=== PATIENT | female | born 1945 | race Caucasian/White ===

== ENCOUNTER 2022-05-15 12:25 | Inpatient (IN) | payer MEDICARE ==
[~2022-05-15] VITALS: Ht 167.6 cm; Wt 62.1 kg
[2022-05-15] MEDS ORDERED: VANCOMYCIN IV 1,000 MG in IV DEXTROSE 5% 250 ML IV ONE (12:45)
[2022-05-15] MEDS ORDERED: IV NORMAL SALINE 100 ML BAG IV ONE (12:45)
[2022-05-15] MEDS ORDERED: PIPERACILLIN SODIUM/TAZOBACTAM 3.375 G in IV DEXTROSE 5% 50 ML IV ONE (12:45)
[2022-05-15] MEDS ORDERED: VANCOMYCIN IV 200 ML ONE ×2 (12:48→22:26)
[2022-05-15] MEDS ORDERED: PIPERACILLIN/TAZOBACTAM/D5W 50 ML IV ONE (12:49)
[2022-05-15 12:53] LABS: HEMATOCRIT 32.5 % (31.2-41.9); MEAN CORPUSCULAR HEMOGLOBIN 29.9 uug (24.7-32.8); MEAN CORPUSCULAR VOLUME 89.8 fL (75.5-95.3); PLATELET COUNT (AUTO) 242 K/uL (179-408)
[2022-05-15 13:46] LABS: ALANINE AMINOTRANSFERASE 34 U/L (14-59); ALKALINE PHOSPHATASE 102 U/L (50-136); ASPARTATE AMINOTRANSFERASE 21 U/L (15-37); BILIRUBIN,DIRECT 0.2 mg/dL (0.0-0.2); BILIRUBIN,TOTAL 0.6 mg/dL (0.2-1.0); CARBON DIOXIDE 21 mmol/L (21-32); CHLORIDE 103 mmol/L (98-107); CREATININE 0.9 mg/dL (0.6-1.3); GLUCOSE 185 mg/dL (74-106); POTASSIUM 3.8 mmol/L (3.5-5.1); TOTAL PROTEIN, SERUM 6.7 g/dL (6.4-8.2); UREA NITROGEN, BLOOD 28 mg/dL (7-18)
[2022-05-15] MEDS ORDERED: METOCARBAMOL (13:53)
[2022-05-15] MEDS ORDERED: DECADRON (13:53)
[2022-05-15] MEDS ORDERED: TYLENOL (13:53)
[2022-05-15] MEDS ORDERED: ZOFRAN (13:53)
[2022-05-15] MEDS ORDERED: PEPCID (13:53)
[2022-05-15] MEDS ORDERED: DOXYCYCLINE (13:53)
[2022-05-15] MEDS ORDERED: HYDROCODONE (13:53)
[2022-05-15] MEDS ORDERED: AMOXICILLIN (13:53)
[2022-05-15] MEDS ORDERED: GABAPENTIN (13:53)
--- NOTE | 2022-05-15 15:17 | NUR ---
Pt refused to have IV contrast, Dr Michel made aware.
[2022-05-15] MEDS ORDERED: ROBAXIN PO (16:58)
[2022-05-15] MEDS ORDERED: GABA600T12 PO (16:58)
[2022-05-15] MEDS ORDERED: LIDOCAINE PATCH TP (16:58)
[2022-05-15] MEDS ORDERED: HYDR-3972 PO (16:58)
[2022-05-15] MEDS ORDERED: APIX5TAB PO (16:58)
[2022-05-15] MEDS ORDERED: AMOX875T2 PO (16:58)
[2022-05-15] MEDS ORDERED: DEXA4TAB PO (16:58)
[2022-05-15] MEDS ORDERED: DOXY100C5 PO (16:58)
[2022-05-15] MEDS ORDERED: FENT1PAT5 TP (16:58)
[2022-05-15] MEDS ORDERED: FAMO10TA41 PO (16:58)
[2022-05-15] MEDS ORDERED: ONDA4TAB5 PO (16:58)
--- NOTE | 2022-05-15 18:32 | NUR ---
Transfer pt to Tele bed 306.
[2022-05-15 18:36] VITALS: BP 127/58
--- NOTE | 2022-05-15 18:40 | NUR ---
Received from ER. [facility]. large formed stool. diaper & linen changed. Moderate amt. of greenish yellow drainage from GT site. Site cleansed & dry dressing applied.
[2022-05-15 18:42] LABS: *BLOOD, URINE 3+ (NEGATIVE); *CLARITY,URINE CLEAR (CLEAR); *COLOR,URINE YELLOW (YELLOW); *KETONES,URINE NEGATIVE (NEGATIVE); LEUKOCYTE ESTERASE ,URINE NEGATIVE (NEGATIVE); NITRITE, URINE NEGATIVE (NEGATIVE); PH,URINE 5.5 (5.0-8.0); UGLUCOSE NEGATIVE (NEGATIVE)
--- NOTE | 2022-05-15 18:50 | NUR ---
and daughter at bedside.
[2022-05-15 18:51] LABS: *BILIRUBIN,URIN 1+ (NEGATIVE)
--- NOTE | 2022-05-15 19:30 | NUR ---
Received Pt from Day shift. Pt is Alert but is disoriented to full situation at hand. SR on tele. Pt has G-tube, but currently does not have any apparent leakage. Hep lock IV site on the right AC patent. Port-A-Cath on right chest. Safety measures implemented. Will continue to monitor.
[2022-05-15 19:31] LABS: BACTERIA,URINE MANY /HPF (NONE SEEN); WBC,URINE NONE SEEN /HPF (0-3)
[2022-05-15 19:32] LABS: SQUAMOUS EPITHELIAL CELL,UR MODERATE /HPF (NONE SEEN)
[2022-05-15 19:33] LABS: URINE AMORPHOUS URATE MANY /HPF
[2022-05-15 20:00] VITALS: BP 102/49
[2022-05-15] MEDS ORDERED: MAGNESIUM HYDROXIDE 30 ML LIQUID UDC PO PRN (20:30)
[2022-05-15] MEDS ORDERED: GUAIFENESIN/CODEINE 5 ML LIQUID UDC PO PRN (20:30)
[2022-05-15] MEDS ORDERED: ACETAMINOPHEN 325 MG TABLET PO PRN (20:30)
[2022-05-15] MEDS ORDERED: HYDROCODONE/APAP 5-325MG TABLET PO PRN (20:30)
[2022-05-15] MEDS ORDERED: TEMAZEPAM 7.5 MG CAPSULE PO PRN (20:30)
[2022-05-15] MEDS ORDERED: APIXABAN 5 MG TABLET PO SCH (21:00)
[2022-05-15] MEDS ORDERED: GABAPENTIN 300 MG CAPSULE PO SCH (21:00)
[2022-05-15] MEDS ORDERED: HYDROCODONE/APAP 5-325MG TABLET GT PRN (22:30)
[2022-05-15] MEDS ORDERED: MEROPENEM 1GM/NS 100ML IVPB **ER PYXIS ONLY IV ONE ×2 (22:34)
[2022-05-15] MEDS: MEROPENEM 1 G in IV NORMAL SALINE 100 ML IV SCH (22:58)
--- NOTE | 2022-05-15 23:12 | NUR ---
Just found Pt's original antibiotics of meropenem for 2100 and vancomycin for 0000 in med room. Currently giving antibiotics as ordered. Safety measures implemented. Will continue to monitor.
[2022-05-15] MEDS: VANCOMYCIN IV 750 MG in IV DEXTROSE 5% 250 ML IV SCH (23:46)
[2022-05-16] VITALS: BP 93/46
[2022-05-16] MEDS: IV D5/ 0.9% NACL 1,000 ML IV PRN (00:05)
[2022-05-16] MEDS: HYDROCODONE/APAP 5-325MG TABLET PO PRN ×2 (01:11→05:13)
[2022-05-16 04:00] VITALS: BP 91/51
[2022-05-16] MEDS: MEROPENEM 1 G in IV NORMAL SALINE 100 ML IV SCH ×3 (04:42→20:30)
--- NOTE | 2022-05-16 06:49 | NUR ---
End of Shift Note: Pt is A&Ox2 and cooperative. Her orientation is significantly better than it was at beginning of shift. Pt spoke more clearly as well. Pt currently on D5NS @ 60mL/hr. SR on tele. 4L O2 via NC. G-tube site intact with very little leakage. Did not change dressing so that physician can see how much it has drained. Pt with pure wick. Safety measures in place. Will continue to monitor.
[2022-05-16] MEDS ORDERED: PANTOPRAZOLE SODIUM 40 MG TABLET.DR PO SCH (07:00)
[2022-05-16 07:05] LABS: HEMATOCRIT 27.8 % (31.2-41.9); MEAN CORPUSCULAR HEMOGLOBIN 33.2 uug (24.7-32.8); MEAN CORPUSCULAR VOLUME 95.6 fL (75.5-95.3); PLATELET COUNT (AUTO) 152 K/uL (179-408)
[2022-05-16] MEDS ORDERED: NALOXONE HCL 0.4 MG/ML AMPUL IV PRN (07:15)
[2022-05-16 07:36] LABS: BILIRUBIN,TOTAL 0.4 mg/dL (0.2-1.0); CREATININE 0.7 mg/dL (0.6-1.3); PHOSPHOROUS 2.7 mg/dL (2.5-4.9); POTASSIUM 3.5 mmol/L (3.5-5.1); TOTAL PROTEIN, SERUM 5.6 g/dL (6.4-8.2)
[2022-05-16 07:48] LABS: THYROID STIMULATING HORMONE 0.688 mIU/mL (0.358-3.740)
[2022-05-16] MEDS: PANTOPRAZOLE SODIUM 40 MG VIAL IV SCH (08:32)
[2022-05-16] MEDS ORDERED: APIXABAN 5 MG TABLET PO SCH (09:00)
--- NOTE | 2022-05-16 10:00 | NUR ---
Received pt in bed, complaining of pain in her back and G tube area. Pt's family asked to give her something stromnger than Fentanyl patch, as they said Fentanyl patch doesn't work good for her pain. Patient was taking [place] and it still didn't help her with her pain. MD was asked to prescribe her Morphine even though pt is allergic to codeine but [place] didn't cause any reactions. Pt was given morphine 2 mg IV and she said pain subsided successfully. Pt's G tube site looks red and inflamed. When I assessed it, she asked me to stop touching the site because it causes her A lot of pain. Dr Lou contacted Dr Youngblood via text and Dr Youngblood advised to keep the pt NPO for now. I texted Dr Youngblood to ask what is the plan for her and that the family would like to speak with the GI doctor and possibly to change the G tube. I have not got the response from him yet. Pt is alert, her speech is clear, but quiet, she can verbalize pain and is cooperative. Family is at bedside (her and brother).
[2022-05-16] MEDS: MORPHINE SULFATE 2 MG/1 ML DISP.SYRIN IV PRN ×4 (11:10→23:29)
[2022-05-16] MEDS: VANCOMYCIN IV 750 MG in IV DEXTROSE 5% 250 ML IV SCH ×2 (11:22→23:36)
[2022-05-16 12:00] VITALS: BP 128/55
--- NOTE | 2022-05-16 12:21 | NUR ---
WOUND CARE CONSULT: PT REFUSED ASSESSMENT OF G TUBE SITE. PT NOTED TO HAVE FRAGILE SKIN WITH SCARRING AND VERY BONY SACRAL AREA. RECOMMENDATIONS MADE FOR SKIN PROTECTION. DISCUSSED WITH NURSING STAFF.MD IN AGREEMENT WITH PLAN OF CARE.
[2022-05-16] MEDS: SOD FERRIC GLUC COMPLX/SUCROSE 125 MG in IV NORMAL SALINE 100 ML IV SCH (14:13)
[2022-05-16 16:00] VITALS: BP 107/58
[2022-05-16] MEDS: MORPHINE SULFATE 2 MG/1 ML DISP.SYRIN IV ONE ×2 (18:04→18:37)
[2022-05-16] MEDS ORDERED: MORPHINE SULFATE 2 MG/1 ML DISP.SYRIN IV ONE (19:00)
[2022-05-16 20:00] VITALS: BP 107/51
[2022-05-17 00:11] VITALS: BP 94/52
[2022-05-17 04:00] VITALS: BP 110/63
[2022-05-17] MEDS: MEROPENEM 1 G in IV NORMAL SALINE 100 ML IV SCH ×3 (05:41→20:44)
[2022-05-17] MEDS: MORPHINE SULFATE 2 MG/1 ML DISP.SYRIN IV PRN (05:53)
[2022-05-17 06:43] LABS: HEMATOCRIT 25.2 % (31.2-41.9); MEAN CORPUSCULAR HEMOGLOBIN 31.3 uug (24.7-32.8); MEAN CORPUSCULAR VOLUME 92.6 fL (75.5-95.3); PLATELET COUNT (AUTO) 124 K/uL (179-408)
--- NOTE | 2022-05-17 07:05 | NUR ---
SHIFT NOTE: RECEIVED PT ALERT AND ORIENTED X3 REPORT RECEIVED FROM AM NURSE VIOLA PT GIVEN MORPHINE 2MG 3H FOR SEVERE PAIN. MEDICATION GIVEN ORDERED NO SIGNS OF DISTRESS NOTED FROM MEDICATION. FALL AND SAFETY MAININTAINED AND NO ADVERSE REACTION FROM MEDICATION AND ANTIBIOTIC. WILL ENDORSE TO AM NURSE.
[2022-05-17 07:40] LABS: ALANINE AMINOTRANSFERASE 31 U/L (14-59); ALKALINE PHOSPHATASE 72 U/L (50-136); ASPARTATE AMINOTRANSFERASE 28 U/L (15-37); BILIRUBIN,TOTAL 0.4 mg/dL (0.2-1.0); CARBON DIOXIDE 25 mmol/L (21-32); CHLORIDE 108 mmol/L (98-107); CREATININE 0.5 mg/dL (0.6-1.3); FERRITIN 4314 ng/mL (8-252); GLUCOSE 102 mg/dL (74-106); MAGNESIUM 1.9 mg/dL (1.8-2.4); PHOSPHOROUS 1.9 mg/dL (2.5-4.9); POTASSIUM 3.1 mmol/L (3.5-5.1); TOTAL PROTEIN, SERUM 5.4 g/dL (6.4-8.2); UREA NITROGEN, BLOOD 12 mg/dL (7-18)
--- NOTE | 2022-05-17 09:25 | NUR ---
PATIENTS AT THE BEDSIDE STATED THAT HE BROUGHT FOOD FOR HIS AND WANTS TO FEED HER BUT PATIENT IS NOTHING BY MOUTH INFORMED HIM THAT I WILL REACH OUT TO THE DOCTOR AND ASK IF PATIENT CAN BE FED.HE IS ALSO UPSET THAT THE GI HAS NOT BEEN HERE TO SEE HIS SO I CALLED DR COELLO AND LEFT HIM A MESSAGE.
--- NOTE | 2022-05-17 09:29 | NUR ---
DR LAURENT RETURNED CALL AND STATED OK TO FEED HER PATIENTS NOTIFIED.
[2022-05-17 09:59] LABS: *RHEUMATOID FACTOR SCREEN NEGATIVE (NEGATIVE)
[2022-05-17] MEDS ORDERED: POTASSIUM PHOSPHATE MM 15 MMOL in IV NORMAL SALINE 250 ML IV ONE (10:00)
[2022-05-17] MEDS: PANTOPRAZOLE SODIUM 40 MG VIAL IV SCH (10:15)
[2022-05-17 12:00] VITALS: BP 125/61
[2022-05-17] MEDS: HYDROCODONE/APAP 5-325MG TABLET PO PRN ×4 (12:38→23:59)
[2022-05-17] MEDS: VANCOMYCIN IV 750 MG in IV DEXTROSE 5% 250 ML IV SCH ×2 (13:52→20:45)
[2022-05-17] MEDS: SOD FERRIC GLUC COMPLX/SUCROSE 125 MG in IV NORMAL SALINE 100 ML IV SCH (15:58)
[2022-05-17 16:00] VITALS: BP 116/59
[2022-05-17] MEDS ORDERED: NEUTRA PHOS PACKET PO SCH (16:15)
--- NOTE | 2022-05-17 17:30 | NUR ---
DR MUNGUIA HERE SEEN PATIENT WITH ORDERS AND NOTED.
[2022-05-17] MEDS ORDERED: DIATR MEGLU/DIATRIZOATE SODIUM 30 ML BOTTLE ONE (17:57)
--- NOTE | 2022-05-17 18:30 | NUR ---
PER THE STONE RUBBER PATIENTS TOLD HIM THAT PATIENT IS ALLERGIC TO CONTRAST SO HE DID THE KUB WITHOUT THE CONTRAST.
--- NOTE | 2022-05-17 18:32 | NUR ---
NORCO GIVEN X2 PER PATIENTS REQUEST FOR PAIN AND HELPFUL WILL CONTINUE TO OBSERVE.
[2022-05-17 20:00] VITALS: BP 108/56
[2022-05-17] MEDS: METOCLOPRAMIDE HCL 10 MG/2 ML VIAL IV SCH (23:06)
[2022-05-18] VITALS: BP_SYST 102; BP_SYST 116; BP_DIAS 61; BP_DIAS 62
[2022-05-18] MEDS: IV D5/ 0.9% NACL 1,000 ML IV PRN (00:10)
[2022-05-18 04:00] VITALS: BP_SYST 121; BP_DIAS 56; BP_DIAS 65
[2022-05-18] MEDS: HYDROCODONE/APAP 5-325MG TABLET PO PRN ×2 (04:52→11:40)
[2022-05-18] MEDS: MEROPENEM 1 G in IV NORMAL SALINE 100 ML IV SCH ×2 (05:35→13:42)
[2022-05-18] MEDS: VANCOMYCIN IV 750 MG in IV DEXTROSE 5% 250 ML IV SCH ×2 (05:46→14:01)
[2022-05-18] MEDS: METOCLOPRAMIDE HCL 10 MG/2 ML VIAL IV SCH ×3 (05:46→21:18)
[2022-05-18 06:26] LABS: HEMATOCRIT 24.3 % (31.2-41.9); MEAN CORPUSCULAR VOLUME 88.9 fL (75.5-95.3); PLATELET COUNT (AUTO) 112 K/uL (179-408)
[2022-05-18 06:37] LABS: CARBON DIOXIDE 25 mmol/L (21-32); CHLORIDE 105 mmol/L (98-107); CREATININE 0.4 mg/dL (0.6-1.3); GLUCOSE 112 mg/dL (74-106); POTASSIUM 2.9 mmol/L (3.5-5.1); UREA NITROGEN, BLOOD 9 mg/dL (7-18)
[2022-05-18 08:00] VITALS: BP 126/66
[2022-05-18 08:06] LABS: *IMMUNOGLOBULIN G, SERUM 713 mg/dL (586-1602); IMMUNOGLOBULIN M, SERUM 126 mg/dL (26-217)
[2022-05-18] MEDS: PANTOPRAZOLE SODIUM 40 MG VIAL IV SCH (08:56)
[2022-05-18 11:32] VITALS: BP 129/68
--- NOTE | 2022-05-18 12:41 | NUR ---
ALERT AND ABLE TO MAKE NEEDS KNOWN. PATIENT 96% ON ROOM AIR. 02 @ NL NC REMOVED FROM FACE PER PATIENT. NO S/S OF SOB NOTED. PATIENT CONTINUES TO BE NPO. IV FLUIDS IN PLACE D5 NS IN PLACE. IV/ABT CONTINUES. PLACEMENT VERIFIED. PEG PATENT, FLUSHES WELL. YELLOW DRAINAGE NOTED ON STOMA SITE. REDNESS NOTED TO STOMA SITE. C/O PAIN DURING MEDICATION ADMIN VIA PEG. MEDICATED FOR PAIN WITH NARCO 5-325MG, EFFECTIVE. Q2 HRS TURNING CONTINUES. DAUGHTER AT BEDSIDE. NO DISCOMFORT NOTED. CALL HARP WITHIN REACH. SHAJI DENNEY
[2022-05-18] MEDS: POTASSIUM CHLORIDE 50 ML IV SCH ×6 (15:51→21:31)
[2022-05-18 16:35] VITALS: BP 122/54
[2022-05-18] MEDS: ASCORBIC ACID 500 MG TABLET GT SCH (17:00)
[2022-05-18] MEDS: CEFAZOLIN 1 G in IV DEXTROSE 5% 50 ML IV SCH (17:00)
[2022-05-18] MEDS: HYDROCODONE/APAP 5-325MG TABLET GT PRN (18:05)
[2022-05-18] MEDS: ZINC SULFATE 220 MG CAPSULE GT SCH (18:05)
[2022-05-18 20:00] VITALS: BP 129/61
[2022-05-18] MEDS ORDERED: SODIUM PHOSPHATE MM 15 MMOL in IV NORMAL SALINE 250 ML IV ONE (20:00)
--- NOTE | 2022-05-18 20:00 | NUR ---
pt is resting in bed. Significant other is at the bedside. Resp is unlabored o2 in place. telemetry as ordered. GT intact. Pt refused assessment of peg and skin assessment. Purewic in place. Incontinent of urine. Skin cleanse and napoleon care rendered.
[2022-05-18] MEDS: ACIDOPHILUS/BULGARICUS CHEW TAB GT SCH (21:18)
[2022-05-19] VITALS: BP 112/61
[2022-05-19] MEDS: ACIDOPHILUS/BULGARICUS CHEW TAB GT SCH ×2 (03:01→20:42)
[2022-05-19] MEDS: CEFAZOLIN 1 G in IV DEXTROSE 5% 50 ML IV SCH ×3 (03:07→16:56)
--- NOTE | 2022-05-19 03:07 | NUR ---
[place] admimistered as ordered for c/o pain at peg site
[2022-05-19 04:00] VITALS: BP 118/59
[2022-05-19] MEDS: METOCLOPRAMIDE HCL 10 MG/2 ML VIAL IV SCH ×4 (06:00→22:00)
--- NOTE | 2022-05-19 07:26 | NUR ---
END OF SHIFT REPORT; LEVOTHYROXINE HELD PT IS ASLEEP. AM PRESLEY INFORMED.
[2022-05-19 07:58] LABS: HEMATOCRIT 23.2 % (31.2-41.9); MEAN CORPUSCULAR HEMOGLOBIN 30.2 uug (24.7-32.8); MEAN CORPUSCULAR VOLUME 88.8 fL (75.5-95.3); PLATELET COUNT (AUTO) 120 K/uL (179-408)
[2022-05-19 08:22] LABS: ALKALINE PHOSPHATASE 69 U/L (50-136); ASPARTATE AMINOTRANSFERASE 25 U/L (15-37); BILIRUBIN,TOTAL 0.3 mg/dL (0.2-1.0); CARBON DIOXIDE 23 mmol/L (21-32); CHLORIDE 106 mmol/L (98-107); CREATININE 0.4 mg/dL (0.6-1.3); GLUCOSE 106 mg/dL (74-106); MAGNESIUM 1.6 mg/dL (1.8-2.4); PHOSPHOROUS 1.8 mg/dL (2.5-4.9); POTASSIUM 3.4 mmol/L (3.5-5.1); TOTAL PROTEIN, SERUM 5.1 g/dL (6.4-8.2); UREA NITROGEN, BLOOD 7 mg/dL (7-18)
[2022-05-19] MEDS: ASCORBIC ACID 500 MG TABLET GT SCH (08:39)
[2022-05-19] MEDS: ZINC SULFATE 220 MG CAPSULE GT SCH (08:39)
[2022-05-19] MEDS: PANTOPRAZOLE SODIUM 40 MG VIAL IV SCH (08:39)
[2022-05-19 08:44] LABS: ALANINE AMINOTRANSFERASE 24 U/L (14-59)
[2022-05-19] MEDS: ALBUTEROL SULFATE 2.5 MG/3 ML NEBU NEB PRN (09:42)
[2022-05-19] MEDS ORDERED: POTASSIUM CHLORIDE 50 ML IV SCH (10:15)
[2022-05-19] MEDS: MAGNESIUM SULFATE/D5W 100 ML IV SCH ×2 (10:24→12:01)
[2022-05-19] MEDS ORDERED: MAGNESIUM OXIDE 400 MG TABLET GT ONE (10:30)
[2022-05-19 11:30] VITALS: BP 131/66
[2022-05-19] MEDS ORDERED: POTASSIUM PHOSPHATE MM 7.5 MMOL in IV NORMAL SALINE 97.5 ML IV ONE (12:00)
[2022-05-19] MEDS: PROTEIN SUPPLEMENT (PROSTAT) 30 ML LIQUID GT SCH (12:02)
[2022-05-19 12:06] LABS: *ANTI-SCLERODERMA-70 AB <0.2 AI (0.0-0.9); *SJOGREN'S ANTI-SS-A <0.2 AI (0.0-0.9); *SJOGREN'S ANTI-SS-B <0.2 AI (0.0-0.9); *SMITH ANTIBODIES <0.2 AI (0.0-0.9); ANTI-DNA(DS) AB, QN 2 IU/mL (0-9)
[2022-05-19] MEDS: HYDROCODONE/APAP 5-325MG TABLET GT PRN ×2 (12:39→22:10)
[2022-05-19 16:06] LABS: A/G RATIO 0.7 (0.7-1.7); ALBUMIN 1.9 g/dL (2.9-4.4); ALPHA-1-GLOBULIN 0.4 g/dL (0.0-0.4); ALPHA-2-GLOBULIN 0.7 g/dL (0.4-1.0); BETA GLOBULIN 0.8 g/dL (0.7-1.3); GAMMA GLOBULIN 0.8 g/dL (0.4-1.8); GLOBULIN, TOTAL 2.7 g/dL (2.2-3.9); M-SPIKE Not Observed g/dL (Not Observed)
--- NOTE | 2022-05-19 16:17 | NUR ---
Pt. noted to be stable upon the discharge, all needs attended and met. Compliance with the care given, No acute distress noted or verbalized. Able to make the need known. G-tube is leaking and Dr. Lou is aware. Will keep monitoring the patient. Addendum: 05/19/22 at 1742 by KASSY SMART RN Needs correction.
[2022-05-19 16:58] VITALS: BP 134/66
--- NOTE | 2022-05-19 17:44 | NUR ---
Pt. noted to be stable through out the shift, all needs attended and met. Compliance with the care given, No acute distress noted or verbalized. Able to make the need known. G-tube is leaking and Dr. Lou is aware. Will keep monitoring the patient.
[2022-05-19 20:00] VITALS: BP 127/63
[2022-05-20] MEDS: CEFAZOLIN 1 G in IV DEXTROSE 5% 50 ML IV SCH ×3 (00:59→16:29)
[2022-05-20] MEDS: IV D5/ 0.9% NACL 1,000 ML IV PRN (01:00)
[2022-05-20 03:06] LABS: HEPATITIS B SURFACE AG Negative (Negative)
[2022-05-20 04:00] VITALS: BP 132/68
[2022-05-20] MEDS: METOCLOPRAMIDE HCL 10 MG/2 ML VIAL IV SCH ×3 (06:51→21:13)
[2022-05-20 08:34] LABS: CARBON DIOXIDE 24 mmol/L (21-32); CHLORIDE 104 mmol/L (98-107); CREATININE 0.4 mg/dL (0.6-1.3); GLUCOSE 93 mg/dL (74-106); MAGNESIUM 1.8 mg/dL (1.8-2.4); POTASSIUM 3.3 mmol/L (3.5-5.1); UREA NITROGEN, BLOOD 5 mg/dL (7-18)
[2022-05-20] MEDS: ACIDOPHILUS/BULGARICUS CHEW TAB GT SCH ×2 (09:00→21:13)
[2022-05-20] MEDS: PANTOPRAZOLE SODIUM 40 MG VIAL IV SCH (09:00)
[2022-05-20] MEDS: PROTEIN SUPPLEMENT (PROSTAT) 30 ML LIQUID GT SCH (09:00)
[2022-05-20] MEDS: ZINC SULFATE 220 MG CAPSULE GT SCH (09:00)
[2022-05-20] MEDS: ASCORBIC ACID 500 MG TABLET GT SCH (09:00)
[2022-05-20] MEDS ORDERED: POTASSIUM CHLORIDE 20 MEQ TAB.PRT.SR PO SCH (11:30)
[2022-05-20 11:40] VITALS: BP 144/71
[2022-05-20] MEDS ORDERED: TPN/PPN PER PHARMACY IV PRN (11:45)
[2022-05-20] MEDS: FENTANYL 25 MCG/HR PATCH EACH TD SCH (13:16)
--- NOTE | 2022-05-20 14:10 | NUR ---
Received order for PICC line to start TPN and consent form signed by the patient and will be in pt. chart.
[2022-05-20] MEDS: ALBUTEROL SULFATE 2.5 MG/3 ML NEBU NEB PRN (15:21)
[2022-05-20 15:51] VITALS: BP 142/60
[2022-05-20] MEDS: KETOROLAC TROMETHAMINE 15 MG INJ IVP PRN (16:10)
--- NOTE | 2022-05-20 17:45 | NUR ---
Called nursing office if they can arrange the PICC line insertion to happen sooner cause family member requested and also called pharmacy if they can prepare TPN so the nurse can administer over night. Pt. has been stable through out the shift and no acute distress noted. All need attended and met. Skin treatment done. Compliance with the care given. Will keep monitoring the resident.
[2022-05-20 20:52] VITALS: BP 143/81
[2022-05-20] MEDS: MORPHINE SULFATE 2 MG/1 ML DISP.SYRIN IV PRN (21:12)
--- NOTE | 2022-05-20 22:00 | NUR ---
DR. ROMERO IS AWARE PT POTASSIUM IS LOW 3.3 HE DIDN'T ORDER ANYTHING FOR LOW POTASSIUM.
--- NOTE | 2022-05-20 23:24 | NUR ---
TOLD PATIENT I WILL GIVE HER REGLAN SHE SAID "NO BECAUSE IT MAKES ME THROAT UP " SO DISCARDED MEDICATION AND INFORMED DR ROMERO TO D/C REGLAN AND PT GIVEN MORPHINE ORDERED NO ADVERSE REACTION FROM MEDICATION NOTED WILL CONTINUE TO MONITOR FOR SAFETY AND FALLS.
[2022-05-21 00:23] VITALS: BP 158/63
[2022-05-21] MEDS: CEFAZOLIN 1 G in IV DEXTROSE 5% 50 ML IV SCH ×3 (01:01→16:55)
[2022-05-21] MEDS: MORPHINE SULFATE 2 MG/1 ML DISP.SYRIN IV PRN ×2 (01:23→04:49)
[2022-05-21 05:02] VITALS: BP 187/67
[2022-05-21] MEDS: KETOROLAC TROMETHAMINE 15 MG INJ IVP PRN ×2 (05:38→17:45)
[2022-05-21] MEDS: METOCLOPRAMIDE HCL 10 MG/2 ML VIAL IV SCH (06:00)
[2022-05-21 07:17] LABS: CARBON DIOXIDE 24 mmol/L (21-32); CHLORIDE 104 mmol/L (98-107); CREATININE 0.4 mg/dL (0.6-1.3); GLUCOSE 111 mg/dL (74-106); MAGNESIUM 1.6 mg/dL (1.8-2.4); PHOSPHOROUS 2.1 mg/dL (2.5-4.9); POTASSIUM 3.1 mmol/L (3.5-5.1); UREA NITROGEN, BLOOD 6 mg/dL (7-18)
[2022-05-21] MEDS: PROTEIN SUPPLEMENT (PROSTAT) 30 ML LIQUID GT SCH (08:15)
[2022-05-21] MEDS: ASCORBIC ACID 500 MG TABLET GT SCH (09:00)
[2022-05-21] MEDS: ZINC SULFATE 220 MG CAPSULE GT SCH (09:00)
[2022-05-21] MEDS: ACIDOPHILUS/BULGARICUS CHEW TAB GT SCH ×2 (09:00→20:28)
[2022-05-21] MEDS ORDERED: DEXTROSE 50% 50 ML DISP.SYRIN IV PRN (09:30)
[2022-05-21] MEDS: MAGNESIUM SULFATE/D5W 100 ML IV SCH ×2 (09:53→11:48)
[2022-05-21] MEDS: PANTOPRAZOLE SODIUM 40 MG VIAL IV SCH (09:56)
[2022-05-21] MEDS ORDERED: IV D5/ 0.9% NACL 1,000 ML IV PRN (10:00)
[2022-05-21] MEDS ORDERED: POTASSIUM PHOSPHATE MM 15 MMOL in IV NORMAL SALINE 250 ML IV ONE (10:00)
[2022-05-21] MEDS ORDERED: TPN BAG #1 IV SCH ×3 (10:00)
[2022-05-21 12:00] VITALS: BP 152/68
[2022-05-21] MEDS: BLOOD SUGAR DIAGNOSTIC 1 EACH STRIP VI SCH ×2 (12:33→17:22)
[2022-05-21] MEDS: INSULIN REGULAR, HUMAN 300 UNIT/3 ML VIAL SQ PRN (12:36)
[2022-05-21] MEDS ORDERED: METOCLOPRAMIDE HCL 10 MG/2 ML VIAL IV SCH (14:00)
[2022-05-21 16:02] VITALS: BP 156/70
--- NOTE | 2022-05-21 16:58 | NUR ---
Pt. noted to be stable during the shift. Is receiving TPN through PICC line. Able to make the need known. No c/o pain. All need attended and met. Skin treatment done. Compliance with the care given. Family and caregiver noted at her bedside through out the shift. Pt. has an order for stool collection and will Notify next shift. Will keep monitoring the patient.
[2022-05-21] MEDS ORDERED: POTASSIUM CHLORIDE 50 ML IV SCH (18:00)
--- NOTE | 2022-05-21 18:36 | NUR ---
Need to collect stool for patient and notified family and will notify next shift nurse.
[2022-05-21 20:00] VITALS: BP 112/61
[2022-05-22] VITALS: BP 136/51
[2022-05-22] MEDS: KETOROLAC TROMETHAMINE 15 MG INJ IVP PRN ×3 (00:32→20:22)
[2022-05-22] MEDS: CEFAZOLIN 1 G in IV DEXTROSE 5% 50 ML IV SCH ×3 (01:07→17:03)
[2022-05-22] MEDS: ALBUTEROL SULFATE 2.5 MG/3 ML NEBU NEB PRN (03:36)
[2022-05-22 04:00] VITALS: BP 144/72
[2022-05-22] MEDS: BLOOD SUGAR DIAGNOSTIC 1 EACH STRIP VI SCH ×4 (06:00→18:04)
--- NOTE | 2022-05-22 06:42 | NUR ---
Patient slept for short periods only Pain med duration less than 6 hrs pt asking for more pain med within 3 hrs. refuse am care Statd she wants to sleep.
[2022-05-22] MEDS: ONDANSETRON 4 MG/2 ML VIAL IV PRN ×5 (06:47→11:28)
--- NOTE | 2022-05-22 06:58 | NUR ---
NPO via GT and orally maintained No stools during the night. Pt c/o nausea however refused Zofran when offered. dose wasted. Seen by Gastroenteroogist. Smear of drainage at Gt site.
[2022-05-22 07:04] LABS: CARBON DIOXIDE 26 mmol/L (21-32); CHLORIDE 103 mmol/L (98-107); CREATININE 0.4 mg/dL (0.6-1.3); GLUCOSE 139 mg/dL (74-106); MAGNESIUM 1.6 mg/dL (1.8-2.4); PHOSPHOROUS 2.1 mg/dL (2.5-4.9); TRIGLYCERIDES 99 MG/DL (30-150); UREA NITROGEN, BLOOD 6 mg/dL (7-18)
[2022-05-22 07:08] LABS: HEMATOCRIT 21.4 % (31.2-41.9); MEAN CORPUSCULAR VOLUME 97.4 fL (75.5-95.3); PLATELET COUNT (AUTO) 166 K/uL (179-408)
[2022-05-22] MEDS: PROTEIN SUPPLEMENT (PROSTAT) 30 ML LIQUID GT SCH (08:00)
[2022-05-22] MEDS: ACIDOPHILUS/BULGARICUS CHEW TAB GT SCH ×3 (09:00→20:56)
[2022-05-22] MEDS: ASCORBIC ACID 500 MG TABLET GT SCH ×2 (09:00→09:36)
[2022-05-22] MEDS: ZINC SULFATE 220 MG CAPSULE GT SCH ×2 (09:00→09:36)
[2022-05-22] MEDS: PANTOPRAZOLE SODIUM 40 MG VIAL IV SCH (09:37)
[2022-05-22] MEDS ORDERED: TPN BAG #2 IV SCH ×13 (10:00)
[2022-05-22] MEDS: MAGNESIUM SULFATE/D5W 100 ML IV SCH ×2 (10:54→11:52)
[2022-05-22] MEDS ORDERED: SODIUM PHOSPHATE MM 15 MMOL in IV NORMAL SALINE 250 ML IV ONE (11:00)
[2022-05-22] MEDS ORDERED: POTASSIUM PHOSPHATE MM 15 MMOL in IV NORMAL SALINE 250 ML IV ONE (11:00)
[2022-05-22 12:00] VITALS: BP 105/69
[2022-05-22] MEDS: IV D5/ 0.9% NACL 1,000 ML IV SCH (12:09)
[2022-05-22] MEDS: INSULIN REGULAR, HUMAN 300 UNIT/3 ML VIAL SQ PRN ×2 (13:42→23:30)
[2022-05-22 16:00] VITALS: BP 134/68
[2022-05-22] MEDS ORDERED: MORPHINE SULFATE 4 MG/1 ML DISP.SYRIN IV PRN (16:15)
[2022-05-22] MEDS: DICYCLOMINE HCL 20 MG/2 ML AMPUL IM SCH ×2 (16:58→22:57)
--- NOTE | 2022-05-22 18:50 | NUR ---
Pt complained of pain and was given Toradol. After that she said she still had pain level 8 on scale 1-10 and asked for more pain medcation. She sais she had pain speciafially in her stomach area. Jason simmons was made aware and he ordered Bentyl for the patient (3 doses q6 hr). First dose was given at 1700 and the next one is due at 2300. Patient said her pain ceased to level 5 after 1st dose.
[2022-05-22 20:00] VITALS: BP 152/64
[2022-05-23] MEDS: BLOOD SUGAR DIAGNOSTIC 1 EACH STRIP VI SCH ×4 (00:24→18:23)
[2022-05-23 00:30] VITALS: BP 154/75
[2022-05-23] MEDS: CEFAZOLIN 1 G in IV DEXTROSE 5% 50 ML IV SCH ×3 (01:02→17:38)
[2022-05-23] MEDS: MORPHINE SULFATE 2 MG/1 ML DISP.SYRIN IV PRN ×3 (01:45→22:24)
[2022-05-23] MEDS: IV D5/ 0.9% NACL 1,000 ML IV SCH (05:02)
[2022-05-23] MEDS: DICYCLOMINE HCL 20 MG/2 ML AMPUL IM SCH ×2 (05:20→10:53)
[2022-05-23] MEDS: KETOROLAC TROMETHAMINE 15 MG INJ IVP PRN ×2 (07:00→13:16)
[2022-05-23 07:46] LABS: CARBON DIOXIDE 25 mmol/L (21-32); CHLORIDE 106 mmol/L (98-107); CREATININE 0.5 mg/dL (0.6-1.3); GLUCOSE 128 mg/dL (74-106); MAGNESIUM 1.7 mg/dL (1.8-2.4); PHOSPHOROUS 2.1 mg/dL (2.5-4.9); POTASSIUM 3.3 mmol/L (3.5-5.1); UREA NITROGEN, BLOOD 7 mg/dL (7-18)
[2022-05-23] MEDS: PROTEIN SUPPLEMENT (PROSTAT) 30 ML LIQUID GT SCH (08:00)
[2022-05-23] MEDS: FENTANYL 25 MCG/HR PATCH EACH TD SCH (08:45)
[2022-05-23] MEDS: PANTOPRAZOLE SODIUM 40 MG VIAL IV SCH (08:45)
[2022-05-23] MEDS: ACIDOPHILUS/BULGARICUS CHEW TAB GT SCH ×2 (09:00→20:50)
[2022-05-23] MEDS: ZINC SULFATE 220 MG CAPSULE GT SCH (09:00)
[2022-05-23] MEDS: ASCORBIC ACID 500 MG TABLET GT SCH (09:00)
[2022-05-23] MEDS ORDERED: TPN BAG #3 IV SCH ×7 (10:00)
--- NOTE | 2022-05-23 10:00 | NUR ---
Morning medications for GT weren't given because Gt hasnt been used yet due to pain and inflammation of the GT site and pt complaining of pain in her stomach and GT site
[2022-05-23] MEDS: MAGNESIUM SULFATE/D5W 100 ML IV SCH ×2 (10:53→12:44)
[2022-05-23] MEDS ORDERED: POTASSIUM PHOSPHATE MM 15 MMOL in IV NORMAL SALINE 250 ML IV ONE (11:00)
[2022-05-23 11:45] VITALS: BP 137/45
[2022-05-23] MEDS: INSULIN REGULAR, HUMAN 300 UNIT/3 ML VIAL SQ PRN ×2 (11:57→18:25)
[2022-05-23] MEDS ORDERED: IV FAT EMULSIONS 20% 250 ML IV SCH (14:00)
--- NOTE | 2022-05-23 14:41 | NUR ---
Yolette Rivers wants to start pt on G tube feeding Jevity 1.2 and see how she tolerates it. Starting rate is 20 cc/hr, increase bt 5 cc/hr q 2 hr up to 50 cc/hr. Will start as I fet the feeding and monitor
[2022-05-23 15:46] VITALS: BP 116/74
[2022-05-23] MEDS: JEVITY 1.2 1000 ML LIQUID GT PRN (16:31)
--- NOTE | 2022-05-23 17:47 | NUR ---
Started pt's feeding at 17:45 at 20 cc/hr. Will monitor and endorse to engraving press operator if she tolerates well, then increase by 5 cc every 2 hours. Check for residuals and leaking
[2022-05-23] MEDS: ALBUTEROL SULFATE 2.5 MG/3 ML NEBU NEB PRN (20:14)
[2022-05-23 20:54] VITALS: BP 106/61
[2022-05-24] MEDS: BLOOD SUGAR DIAGNOSTIC 1 EACH STRIP VI SCH ×4 (00:40→18:07)
[2022-05-24 00:41] VITALS: BP 110/46
[2022-05-24] MEDS: INSULIN REGULAR, HUMAN 300 UNIT/3 ML VIAL SQ PRN ×2 (00:41→06:41)
[2022-05-24] MEDS: CEFAZOLIN 1 G in IV DEXTROSE 5% 50 ML IV SCH ×2 (02:31→08:17)
[2022-05-24 04:15] VITALS: BP 129/58
[2022-05-24] MEDS: MORPHINE SULFATE 2 MG/1 ML DISP.SYRIN IV PRN ×2 (04:39→21:09)
--- NOTE | 2022-05-24 07:05 | NUR ---
Pt complained of severe pain from the abdomen to the back. Administered Morphine as ordered. Increased gtube feeding by 5cc every 2 hours. Now at 45 cc/hr. Pt able to tolerate feedings well. No residual noted. No leakage as well. Will endorse to incoming shift.
[2022-05-24 07:45] LABS: CARBON DIOXIDE 23 mmol/L (21-32); CHLORIDE 104 mmol/L (98-107); CREATININE 0.4 mg/dL (0.6-1.3); GLUCOSE 148 mg/dL (74-106); MAGNESIUM 1.9 mg/dL (1.8-2.4); PHOSPHOROUS 2.7 mg/dL (2.5-4.9); POTASSIUM 4.1 mmol/L (3.5-5.1); UREA NITROGEN, BLOOD 10 mg/dL (7-18)
[2022-05-24] MEDS: ACIDOPHILUS/BULGARICUS CHEW TAB GT SCH ×2 (08:18→21:08)
[2022-05-24] MEDS: PANTOPRAZOLE SODIUM 40 MG VIAL IV SCH (08:18)
[2022-05-24] MEDS: ASCORBIC ACID 500 MG TABLET GT SCH (08:18)
[2022-05-24] MEDS: ZINC SULFATE 220 MG CAPSULE GT SCH (08:18)
[2022-05-24] MEDS: PROTEIN SUPPLEMENT (PROSTAT) 30 ML LIQUID GT SCH (08:19)
[2022-05-24] MEDS: HYDROCODONE/APAP 5-325MG TABLET GT PRN ×4 (08:24→21:26)
[2022-05-24 09:30] LABS: HEMATOCRIT 23.2 % (31.2-41.9); MEAN CORPUSCULAR HEMOGLOBIN 30.8 uug (24.7-32.8); MEAN CORPUSCULAR VOLUME 91.9 fL (75.5-95.3); PLATELET COUNT (AUTO) 128 K/uL (179-408)
[2022-05-24] MEDS ORDERED: TPN BAG #4 IV SCH (10:00)
[2022-05-24 11:21] VITALS: BP 101/53
[2022-05-24] MEDS: IV D5/ 0.9% NACL 1,000 ML IV SCH (12:53)
[2022-05-24 15:40] VITALS: BP 138/61
[2022-05-24 20:06] VITALS: BP 121/55
--- NOTE | 2022-05-24 21:30 | NUR ---
Pt complained of severe pain on the back with score of 10/10. Pt requested pain medication. Changed mind on Morphine. Pt wanted [place] instead. Administered [place] as ordered. Will continue to monitor.
[2022-05-25] VITALS (7 sets, daily range): BP systolic 118–156; BP diastolic 54–68
[2022-05-25] MEDS: BLOOD SUGAR DIAGNOSTIC 1 EACH STRIP VI SCH ×4 (00:47→18:25)
[2022-05-25] MEDS: HYDROCODONE/APAP 5-325MG TABLET GT PRN ×4 (05:30→20:36)
--- NOTE | 2022-05-25 05:54 | NUR ---
Slept intermittently. Pt complained of severe pain. Administered [place] as ordered. Gtube site clean and dry. Gtube care done. Pt able to tolerate feedings at 50 cc/hr. No residual noted nor any leakage on gtube. Aspiration precaution maintained. All needs attended. No complaints as of this time. Will endorse to incoming shift.
[2022-05-25 07:13] LABS: HEMATOCRIT 22.3 % (31.2-41.9); MEAN CORPUSCULAR HEMOGLOBIN 32.6 uug (24.7-32.8); MEAN CORPUSCULAR VOLUME 93.4 fL (75.5-95.3); PLATELET COUNT (AUTO) 139 K/uL (179-408)
[2022-05-25 07:39] LABS: CARBON DIOXIDE 24 mmol/L (21-32); CHLORIDE 100 mmol/L (98-107); CREATININE 0.5 mg/dL (0.6-1.3); GLUCOSE 122 mg/dL (74-106); MAGNESIUM 1.7 mg/dL (1.8-2.4); POTASSIUM 4.3 mmol/L (3.5-5.1); UREA NITROGEN, BLOOD 10 mg/dL (7-18)
[2022-05-25] MEDS: ACIDOPHILUS/BULGARICUS CHEW TAB GT SCH ×2 (09:26→20:36)
[2022-05-25] MEDS: ASCORBIC ACID 500 MG TABLET GT SCH (09:26)
[2022-05-25] MEDS: ZINC SULFATE 220 MG CAPSULE GT SCH (09:26)
[2022-05-25] MEDS: PANTOPRAZOLE SODIUM 40 MG VIAL IV SCH (09:27)
[2022-05-25] MEDS: PROTEIN SUPPLEMENT (PROSTAT) 30 ML LIQUID GT SCH (09:27)
[2022-05-25] MEDS: GABAPENTIN 300 MG CAPSULE GT SCH ×2 (09:27→18:25)
[2022-05-25] MEDS ORDERED: MAGNESIUM OXIDE 400 MG TABLET GT ONE (10:00)
[2022-05-25] MEDS: ALBUTEROL SULFATE 2.5 MG/3 ML NEBU NEB PRN (12:52)
[2022-05-25] MEDS ORDERED: LACT-209 GT (13:37)
--- NOTE | 2022-05-25 18:22 | NUR ---
shift note; pt is in no acute distress. bedbound. on RA saturating 97%; tolerated Gtube feeding well; 20cc residual noted. redness on GT site; wound care consult pending; vitals wnl. gave norco q4h for abdominal pain. discharge order in placed; pt will be discharge yasmin per CM; MD aware. family at bedside and aware of discharge; call light within reach; safety measure maintained; bed alarm on; will endorsed to noc shift.
[2022-05-25] MEDS: INSULIN REGULAR, HUMAN 300 UNIT/3 ML VIAL SQ PRN (18:26)
--- NOTE | 2022-05-25 19:25 | NUR ---
Received Pt from Day shift. Pt is A&Ox3, cooperative, but is very weak. Pt on Jevity 1.2 @ 50mL/hr. G-tube site shows no signs of leakage. Pt has a R. Portacath. JOSE midline patent and intact. No S&S of distress. Pt on Rm Air. Safety measures in place. Will continue to monitor.
[2022-05-26] VITALS: BP 107/59
[2022-05-26] MEDS: BLOOD SUGAR DIAGNOSTIC 1 EACH STRIP VI SCH ×4 (00:13→17:34)
[2022-05-26 04:00] VITALS: BP 137/64
[2022-05-26] MEDS: JEVITY 1.2 1000 ML LIQUID GT PRN (05:35)
[2022-05-26] MEDS: HYDROCODONE/APAP 5-325MG TABLET GT PRN ×4 (06:11→22:48)
[2022-05-26] MEDS: PANTOPRAZOLE ORAL SUSPENSION 40 MG SUSPDR.PKT GT SCH (06:11)
[2022-05-26] MEDS ORDERED: JEVITY 1.2 1000 ML LIQUID GT PRN (07:27)
[2022-05-26 07:34] LABS: CREATININE 0.6 mg/dL (0.6-1.3); MAGNESIUM 1.5 mg/dL (1.8-2.4); PHOSPHOROUS 3.6 mg/dL (2.5-4.9); POTASSIUM 4.7 mmol/L (3.5-5.1)
[2022-05-26 08:00] VITALS: BP 116/56
[2022-05-26] MEDS: PROTEIN SUPPLEMENT (PROSTAT) 30 ML LIQUID GT SCH (08:00)
[2022-05-26] MEDS: GABAPENTIN 300 MG CAPSULE GT SCH ×2 (08:54→17:00)
[2022-05-26] MEDS: ZINC SULFATE 220 MG CAPSULE GT SCH (08:54)
[2022-05-26] MEDS: ACIDOPHILUS/BULGARICUS CHEW TAB GT SCH ×2 (08:54→21:06)
[2022-05-26] MEDS: FENTANYL 25 MCG/HR PATCH EACH TD SCH (08:57)
[2022-05-26] MEDS: ASCORBIC ACID 500 MG TABLET GT SCH (09:03)
[2022-05-26] MEDS: MAGNESIUM SULFATE/D5W 100 ML IV SCH ×2 (10:08→10:51)
[2022-05-26] MEDS: ALBUTEROL SULFATE 2.5 MG/3 ML NEBU NEB PRN ×2 (11:13→16:28)
[2022-05-26 11:50] VITALS: BP 101/40
--- NOTE | 2022-05-26 12:38 | NUR ---
WOUND CARE CONSULT: PT NOT FEELING WELL AT THIS TIME FOR SKIN ASSESSMENT PER RN. DISCUSSED SKIN PROTECTION WITH NURSING STAFF. WILL SEE PT PT CONDITION PERMITS. MD IN AGREEMENT WITH PLAN OF CARE.
--- NOTE | 2022-05-26 12:46 | NUR ---
WOUND CARE: PT SEEN FOR SKIN ASSESSMENT AND NOTED TO HAVE SACRAL SCARRING AND SLIGHT REDNESS TO G TUBE SITE, PRESENT ON ADMISSION. RECOMMENDATIONS MADE FOR SKIN PROTECTION. DISCUSSED WITH NURSING STAFF. MD IN AGREEMENT WITH PLAN OF CARE.
[2022-05-26] MEDS ORDERED: DEXT15SY3 PO (13:17)
[2022-05-26] MEDS ORDERED: ZINC56.713 TP (13:17)
--- NOTE | 2022-05-26 13:23 | NUR ---
Patient refused am care this am. Stating that she is not feeling good today. at bedside Possible discharge home today..Seen by Electrical Assembly Supervisor. GT site D/I no drainage noted. Feeding in progress.
[2022-05-26] MEDS: INSULIN REGULAR, HUMAN 300 UNIT/3 ML VIAL SQ PRN ×2 (14:18→18:35)
[2022-05-26 16:56] VITALS: BP 117/47
[2022-05-26] MEDS: ACETAMINOPHEN 650 MG SUPP.RECT RC PRN (16:56)
--- NOTE | 2022-05-26 18:54 | NUR ---
Pt status appear to be deteriorating. Very lethargic REpositioned Q2 Skin care done evaluation by wound care nurse. Peg site with minimal brownish drainage Mild excoriation noted Chest US done Resulted; Moderate fluid to left plural cavity As per US tech Same will be drained in am. Pt for transfer to [facility] post thoracintesis. Pt with episodes of coughing becomes very congested LEGAL ADMINISTRATIVE SECRETARY informed Resp TX ordered Q6 Suctioned post TX for moderate thick secretions.
--- NOTE | 2022-05-26 19:52 | NUR ---
Received patient lying in bed. Family member at bedside. VS taken as follow: BP 73/35, HR 107, RR 19, Temp 101.3. O2 sat 96% on 3LPM via NC in place. Patient pale and weak in appearance but still verbally responsive to name only. Family made aware of patient condition and decline and discuss code status. Family wishes for patient to be DNR/DNI at this time. Informed Dr. Bhat and gave order to change code status to DNR/DNI. Order noted and carried out, witnessed by charge nurse Julianna. Cooling measure provided. Will continue to monitor.
[2022-05-26 20:00] VITALS: BP 73/35
--- NOTE | 2022-05-26 21:30 | NUR ---
Sinus tachy on tele with HR of 115/min. Latest temp. 100.1, BP 98/47. Continue with cooling measure. Patient appears comfortable. GT feeding infusing. Family still at bedside. Continue to monitor.
[2022-05-27] MEDS: BLOOD SUGAR DIAGNOSTIC 1 EACH STRIP VI SCH ×5 (00:05→23:55)
[2022-05-27] MEDS: INSULIN REGULAR, HUMAN 300 UNIT/3 ML VIAL SQ PRN ×3 (00:07→23:56)
[2022-05-27 00:40] VITALS: BP 106/46
[2022-05-27 04:08] VITALS: BP 133/54
[2022-05-27] MEDS: PANTOPRAZOLE ORAL SUSPENSION 40 MG SUSPDR.PKT GT SCH (05:25)
--- NOTE | 2022-05-27 05:49 | NUR ---
Afebrile, AAOx2-3. In no apparent distress. Able to make needs known at this time. HOB kept elevated. O2 at 3LPM via NC in place. GT feeding and flushing well tolerated. NSR on tele with HR of 99/min. Kept dry, clean and comfortable. Safety measure maintained and call light within reached.
[2022-05-27 07:00] LABS: CREATININE 0.8 mg/dL (0.6-1.3); POTASSIUM 4.6 mmol/L (3.5-5.1)
[2022-05-27 08:00] VITALS: BP 121/47
[2022-05-27] MEDS: PROTEIN SUPPLEMENT (PROSTAT) 30 ML LIQUID GT SCH (08:00)
[2022-05-27] MEDS: ACIDOPHILUS/BULGARICUS CHEW TAB GT SCH ×2 (08:46→20:20)
[2022-05-27] MEDS: ASCORBIC ACID 500 MG TABLET GT SCH (08:46)
[2022-05-27] MEDS: HYDROCODONE/APAP 5-325MG TABLET GT PRN ×3 (08:46→18:11)
[2022-05-27] MEDS: ZINC SULFATE 220 MG CAPSULE GT SCH (08:46)
[2022-05-27] MEDS: GABAPENTIN 300 MG CAPSULE GT SCH ×2 (08:46→17:50)
[2022-05-27 11:07] LABS: CALCITRIOL VIT D,1,25 DIHYDROX 58.8 pg/mL (24.8-81.5)
[2022-05-27 11:40] VITALS: BP 94/42
--- NOTE | 2022-05-27 12:50 | NUR ---
SODIUM 132. REPORTED TO CUSTOM BIKE BUILDER. NO NEW ORDERS YET. PATT Larsen RN
[2022-05-27] MEDS ORDERED: ALBUMIN HUMAN 25% 50 ML IV ONE (13:00)
[2022-05-27] MEDS: ALBUTEROL SULFATE 2.5 MG/3 ML NEBU NEB PRN (14:45)
[2022-05-27] MEDS ORDERED: PIPERACILLIN SODIUM/TAZOBACTAM 3.375 G in IV DEXTROSE 5% 50 ML IV ONE (15:00)
[2022-05-27 16:21] VITALS: BP 90/49
--- NOTE | 2022-05-27 17:10 | NUR ---
SPUTUM CULTURE COLLECTED VIA SUCTIONING PER ORDER AND SENT TO LAB PER ORDER. PATT Larsen RN
[2022-05-27] MEDS ORDERED: IV NORMAL SALINE 500 ML IV ONE (18:00)
--- NOTE | 2022-05-27 18:27 | NUR ---
bp 120/49 hr 109
--- NOTE | 2022-05-27 20:00 | NUR ---
Received patient lying in bed. at bedside. AAOx2-3. Appears comfortable. In no apparent distress. No signs or symptoms of pain or SOB. O2 at 3LPMvia NC in place. O2 sat at 98%. GT feeding infusing. PICC line on right upper arm and midline on left upper arm intact and patent. NSR on tele with HR of 82/min. Safety measure initiated and call light within reached.
[2022-05-27 20:35] VITALS: BP 99/46
[2022-05-27] MEDS: PIPERACILLIN SODIUM/TAZOBACTAM 3.375 G in IV DEXTROSE 5% 100 ML IV SCH (21:10)
[2022-05-28 00:25] VITALS: BP 102/55
[2022-05-28 04:10] VITALS: BP 107/53
[2022-05-28] MEDS: PANTOPRAZOLE ORAL SUSPENSION 40 MG SUSPDR.PKT GT SCH (05:27)
[2022-05-28] MEDS: PIPERACILLIN SODIUM/TAZOBACTAM 3.375 G in IV DEXTROSE 5% 100 ML IV SCH ×3 (05:27→22:00)
[2022-05-28] MEDS: BLOOD SUGAR DIAGNOSTIC 1 EACH STRIP VI SCH ×3 (05:36→17:47)
[2022-05-28] MEDS: INSULIN REGULAR, HUMAN 300 UNIT/3 ML VIAL SQ PRN (05:37)
--- NOTE | 2022-05-28 05:53 | NUR ---
Slept well during the night. Remains AAOx3. Able to answer simple questions. In no apparent distress. Able to make needs known at this time. HOB kept elevated. O2 at 3LPM via NC in place. GT feeding and flushing tolerated. Sinus tachy on tele with HR of 117/min. Safety measure maintained and call light within reached.
[2022-05-28 06:46] LABS: HEMATOCRIT 22.1 % (31.2-41.9); MEAN CORPUSCULAR HEMOGLOBIN 30.1 uug (24.7-32.8); MEAN CORPUSCULAR VOLUME 90.6 fL (75.5-95.3); PLATELET COUNT (AUTO) 224 K/uL (179-408)
[2022-05-28 07:30] LABS: CREATININE 0.6 mg/dL (0.6-1.3); MAGNESIUM 1.7 mg/dL (1.8-2.4); PHOSPHOROUS 3.1 mg/dL (2.5-4.9); POTASSIUM 4.7 mmol/L (3.5-5.1); URIC ACID 2.2 mg/dL (2.6-6.0)
[2022-05-28 07:40] LABS: THYROID STIMULATING HORMONE 0.989 mIU/mL (0.358-3.740)
[2022-05-28] MEDS: PROTEIN SUPPLEMENT (PROSTAT) 30 ML LIQUID GT SCH (08:00)
[2022-05-28] MEDS: ACIDOPHILUS/BULGARICUS CHEW TAB GT SCH ×2 (10:25→20:26)
[2022-05-28] MEDS: ASCORBIC ACID 500 MG TABLET GT SCH (10:25)
[2022-05-28] MEDS: GABAPENTIN 300 MG CAPSULE GT SCH ×2 (10:25→17:47)
[2022-05-28] MEDS: ZINC SULFATE 220 MG CAPSULE GT SCH (10:25)
[2022-05-28] MEDS: HYDROCODONE/APAP 5-325MG TABLET GT PRN ×2 (10:34→20:39)
[2022-05-28] MEDS: MAGNESIUM SULFATE/D5W 100 ML IV SCH ×2 (10:35→11:00)
[2022-05-28 11:33] VITALS: BP 119/58
[2022-05-28] MEDS ORDERED: LIDOCAINE-MPF 2% 5 ML VIAL NEB PRN (15:15)
[2022-05-28] MEDS: ACETYLCYSTEINE 10% 4ML VIAL NEB SCH ×2 (16:29→23:30)
[2022-05-28] MEDS: ALBUTEROL SULFATE 2.5 MG/3 ML NEBU NEB PRN (16:29)
[2022-05-28 16:55] VITALS: BP 125/50
--- NOTE | 2022-05-28 19:30 | NUR ---
Received patient lying in bed. at bedside. AAOx3-4. Calm and pleasant. In no apparent distress. Denies any pain or SOB. O2 at 3LPMvia NC in place. GT feeding infusing. PICC line on right upper arm and midline on left upper arm intact and patent. Sinus tachy on tele with HR of 107/min. Safety measure initiated and call light within reached.
[2022-05-28 20:00] VITALS: BP 114/45
[2022-05-28] MEDS: ENOXAPARIN SODIUM 30 MG/0.3 ML DISP.SYRIN SUBCUT SCH (20:28)
[2022-05-29] VITALS: BP 94/41
[2022-05-29] MEDS: INSULIN REGULAR, HUMAN 300 UNIT/3 ML VIAL SQ PRN ×2 (00:02→05:20)
[2022-05-29] MEDS: BLOOD SUGAR DIAGNOSTIC 1 EACH STRIP VI SCH ×5 (00:04→23:38)
[2022-05-29 04:00] VITALS: BP 128/66
[2022-05-29] MEDS: ACETAMINOPHEN 650 MG SUPP.RECT RC PRN (04:38)
[2022-05-29] MEDS: ALBUTEROL SULFATE 2.5 MG/3 ML NEBU NEB PRN ×2 (05:08→08:23)
[2022-05-29] MEDS: PANTOPRAZOLE ORAL SUSPENSION 40 MG SUSPDR.PKT GT SCH (05:14)
[2022-05-29] MEDS: PIPERACILLIN SODIUM/TAZOBACTAM 3.375 G in IV DEXTROSE 5% 100 ML IV SCH ×3 (05:14→21:42)
[2022-05-29] MEDS: HYDROCODONE/APAP 5-325MG TABLET GT PRN ×2 (06:24→14:05)
--- NOTE | 2022-05-29 06:31 | NUR ---
Afebrile at this time. In no acute distress. [place] via GT given for pain and effective. No adverse effect noted from IV antibiotic. Gt feeling and flushing well tolerated. Sinus tachy on tele with Hr of 117/min. Needs attended to and met. Safety measure maintained and call light within reached.
[2022-05-29 07:14] LABS: HEMATOCRIT 21.8 % (31.2-41.9); MEAN CORPUSCULAR HEMOGLOBIN 33.6 uug (24.7-32.8); MEAN CORPUSCULAR VOLUME 94.9 fL (75.5-95.3); PLATELET COUNT (AUTO) 260 K/uL (179-408)
[2022-05-29 07:24] LABS: CREATININE 0.7 mg/dL (0.6-1.3); MAGNESIUM 1.8 mg/dL (1.8-2.4); PHOSPHOROUS 2.9 mg/dL (2.5-4.9); POTASSIUM 4.5 mmol/L (3.5-5.1)
[2022-05-29 08:00] VITALS: BP 94/55
[2022-05-29] MEDS: PROTEIN SUPPLEMENT (PROSTAT) 30 ML LIQUID GT SCH (08:00)
[2022-05-29] MEDS: ACETYLCYSTEINE 10% 4ML VIAL NEB SCH ×3 (08:24→23:45)
--- NOTE | 2022-05-29 08:50 | NUR ---
PATIENT TEMP 100.6. COOLING MEASURES INITIATED. TOBACCO CURER GAVE TYLENOL 650 VIA PEG. REPORTED TO PHYSICAL EDUCATION DEPARTMENT CHAIR. WILL REASSESSED SOON. PATT Larsen RN
--- NOTE | 2022-05-29 08:55 | NUR ---
HEMOGLOBIN 7.3. REPORTED TO OB/GYN DOCTOR.
--- NOTE | 2022-05-29 09:31 | NUR ---
PATIENT COMPLAINS OF CONSTIPATION. REPORTED TO AGRICULTURAL TECHNICIAN. AWAITING NEW ORDER. PATT Larsen RN
[2022-05-29] MEDS: ACETAMINOPHEN 325 MG TABLET GT PRN ×2 (09:37→17:02)
[2022-05-29] MEDS: GABAPENTIN 300 MG CAPSULE GT SCH ×2 (09:37→17:02)
[2022-05-29] MEDS: ZINC SULFATE 220 MG CAPSULE GT SCH (09:37)
[2022-05-29] MEDS: ACIDOPHILUS/BULGARICUS CHEW TAB GT SCH ×2 (09:38→20:27)
[2022-05-29] MEDS: ASCORBIC ACID 500 MG TABLET GT SCH (09:38)
[2022-05-29] MEDS: ENOXAPARIN SODIUM 30 MG/0.3 ML DISP.SYRIN SUBCUT SCH ×2 (09:39→20:49)
[2022-05-29] MEDS ORDERED: BISACODYL 10 MG SUPP.RECT RC PRN (10:00)
[2022-05-29] MEDS ORDERED: SENNOSIDES/DOCUSATE SODIUM TABLET PO PRN (10:00)
[2022-05-29] MEDS ORDERED: MAGNESIUM HYDROXIDE 30 ML LIQUID UDC GT PRN (10:00)
--- NOTE | 2022-05-29 10:15 | NUR ---
temp decrease from 100.6 to 97.1.
[2022-05-29] MEDS: FENTANYL 25 MCG/HR PATCH EACH TD SCH (10:52)
[2022-05-29] MEDS: DOCUSATE SODIUM 100 MG/10 ML LIQUID UDC GT SCH ×2 (10:52→20:27)
[2022-05-29 11:08] VITALS: BP 104/48
[2022-05-29] MEDS: ALBUTEROL SULFATE 2.5 MG/ 0.5 ML NEBU NEB SCH ×2 (15:03→23:45)
[2022-05-29 15:17] VITALS: BP 118/64
[2022-05-29] MEDS ORDERED: NALOXONE HCL 0.4 MG/ML AMPUL IV PRN (15:30)
--- NOTE | 2022-05-29 15:50 | NUR ---
PATIENT REQUESTED CHANGE IN CODE STATUS. PATIENT WAS DNR. FAMILY NOW REQUESTING TO CHANGE TO FULL CODE. ORDERS ARE IN PLAC4E FOR FULL CODE. KACIE ZHAO AWARE. PATT Larsen RN, BSN.
--- NOTE | 2022-05-29 19:40 | NUR ---
Received patient lying in bed. at bedside. Asleep at this time. Appears comfortable. In no apparent distress. No signs or symptoms of pain or SOB. GT feeding infusing. PICC line on right upper arm and midline on left upper arm intact and patent. NSR on tele with HR of 98/min. Safety measure initiated and call light within reached.
[2022-05-29 20:00] VITALS: BP 102/51
[2022-05-30] VITALS: BP 120/53
[2022-05-30] MEDS: HYDROCODONE/APAP 5-325MG TABLET GT PRN ×4 (01:14→21:39)
[2022-05-30 04:00] VITALS: BP 113/48
[2022-05-30] MEDS: BLOOD SUGAR DIAGNOSTIC 1 EACH STRIP VI SCH ×4 (05:01→23:37)
[2022-05-30] MEDS: INSULIN REGULAR, HUMAN 300 UNIT/3 ML VIAL SQ PRN (05:02)
[2022-05-30] MEDS: PIPERACILLIN SODIUM/TAZOBACTAM 3.375 G in IV DEXTROSE 5% 100 ML IV SCH ×3 (05:05→21:53)
[2022-05-30] MEDS: PANTOPRAZOLE ORAL SUSPENSION 40 MG SUSPDR.PKT GT SCH (05:05)
--- NOTE | 2022-05-30 05:20 | NUR ---
AAOx3-4. Afebrile. In no acute distress. No adverse effect noted from IV antibiotic. Gt feeling and flushing well tolerated. Sinus tachy on tele with HR of 101/min. Gt feeding and flushing well tolerated. Suction secretions PRN. Needs attended to and met. Safety measure maintained and call light within reached.
[2022-05-30 06:43] LABS: HEMATOCRIT 21.7 % (31.2-41.9); MEAN CORPUSCULAR HEMOGLOBIN 33.5 uug (24.7-32.8); MEAN CORPUSCULAR VOLUME 94.4 fL (75.5-95.3); PLATELET COUNT (AUTO) 285 K/uL (179-408)
[2022-05-30 07:31] LABS: CREATININE 0.6 mg/dL (0.6-1.3); MAGNESIUM 1.8 mg/dL (1.8-2.4); POTASSIUM 4.3 mmol/L (3.5-5.1)
[2022-05-30] MEDS: ACETYLCYSTEINE 10% 4ML VIAL NEB SCH ×3 (07:34→21:49)
[2022-05-30] MEDS: ALBUTEROL SULFATE 2.5 MG/ 0.5 ML NEBU NEB SCH ×3 (07:34→21:50)
[2022-05-30 08:00] VITALS: BP 125/57
[2022-05-30] MEDS: PROTEIN SUPPLEMENT (PROSTAT) 30 ML LIQUID GT SCH (08:00)
[2022-05-30] MEDS: ENOXAPARIN SODIUM 30 MG/0.3 ML DISP.SYRIN SUBCUT SCH ×2 (09:00→21:37)
[2022-05-30] MEDS: ASCORBIC ACID 500 MG TABLET GT SCH (09:18)
[2022-05-30] MEDS: ZINC SULFATE 220 MG CAPSULE GT SCH (09:18)
[2022-05-30] MEDS: DOCUSATE SODIUM 100 MG/10 ML LIQUID UDC GT SCH ×2 (09:18→21:36)
[2022-05-30] MEDS: GABAPENTIN 300 MG CAPSULE GT SCH ×2 (09:19→17:37)
[2022-05-30] MEDS: ACIDOPHILUS/BULGARICUS CHEW TAB GT SCH ×2 (09:19→21:36)
[2022-05-30 11:23] VITALS: BP 125/48
[2022-05-30 15:03] VITALS: BP 110/61
[2022-05-30 20:00] VITALS: BP 118/65
[2022-05-31 04:00] VITALS: BP 130/62
[2022-05-31] MEDS: PANTOPRAZOLE ORAL SUSPENSION 40 MG SUSPDR.PKT GT SCH (05:35)
[2022-05-31] MEDS: PIPERACILLIN SODIUM/TAZOBACTAM 3.375 G in IV DEXTROSE 5% 100 ML IV SCH ×3 (05:37→22:00)
[2022-05-31] MEDS: BLOOD SUGAR DIAGNOSTIC 1 EACH STRIP VI SCH ×3 (06:00→18:00)
[2022-05-31] MEDS: HYDROCODONE/APAP 5-325MG TABLET GT PRN ×4 (06:23→16:15)
[2022-05-31 07:03] LABS: HEMATOCRIT 23.9 % (31.2-41.9); MEAN CORPUSCULAR VOLUME 95.9 fL (75.5-95.3); PLATELET COUNT (AUTO) 349 K/uL (179-408)
[2022-05-31 07:21] LABS: CREATININE 0.6 mg/dL (0.6-1.3); MAGNESIUM 1.8 mg/dL (1.8-2.4); PHOSPHOROUS 3.2 mg/dL (2.5-4.9); POTASSIUM 4.6 mmol/L (3.5-5.1)
[2022-05-31 08:00] VITALS: BP 117/43
[2022-05-31] MEDS: PROTEIN SUPPLEMENT (PROSTAT) 30 ML LIQUID GT SCH (08:00)
[2022-05-31] MEDS: ALBUTEROL SULFATE 2.5 MG/ 0.5 ML NEBU NEB SCH ×2 (08:54→15:25)
[2022-05-31] MEDS: ACETYLCYSTEINE 10% 4ML VIAL NEB SCH ×2 (08:55→15:25)
[2022-05-31] MEDS: ENOXAPARIN SODIUM 30 MG/0.3 ML DISP.SYRIN SUBCUT SCH ×2 (09:00→20:45)
[2022-05-31] MEDS: ASCORBIC ACID 500 MG TABLET GT SCH (09:00)
--- NOTE | 2022-05-31 09:36 | NUR ---
PATIENT REFUSED LOVONOX. CAISSON WORKER EDUCATED PATIENT ON THE IMPORTANCE FOR MEDICATION REGIMEN. PATIENT VOICED UNDERSTANDING. STILL REFUSED. REPORTED TO KACIE ZHAO. PATT Larsen RN
[2022-05-31] MEDS: DOCUSATE SODIUM 100 MG/10 ML LIQUID UDC GT SCH ×2 (10:24→20:44)
[2022-05-31] MEDS: ACIDOPHILUS/BULGARICUS CHEW TAB GT SCH ×2 (10:25→20:44)
[2022-05-31] MEDS: ZINC SULFATE 220 MG CAPSULE GT SCH (10:25)
[2022-05-31] MEDS: GABAPENTIN 300 MG CAPSULE GT SCH ×2 (10:25→16:15)
[2022-05-31 12:00] VITALS: BP 117/69
[2022-05-31 16:00] VITALS: BP 115/55
[2022-05-31 20:48] VITALS: BP 134/64
[2022-06-01] MEDS: HYDROCODONE/APAP 5-325MG TABLET GT PRN ×3 (00:44→17:30)
[2022-06-01] MEDS: HYDROCODONE BIT/HOMATROPINE 5 ML UDC PO PRN ×3 (00:44→17:52)
[2022-06-01 00:45] VITALS: BP 119/56
[2022-06-01] MEDS: ALBUTEROL SULFATE 2.5 MG/ 0.5 ML NEBU NEB SCH ×4 (01:03→16:49)
[2022-06-01] MEDS: ACETYLCYSTEINE 10% 4ML VIAL NEB SCH ×4 (01:04→16:49)
[2022-06-01] MEDS: INSULIN REGULAR, HUMAN 300 UNIT/3 ML VIAL SQ PRN (04:02)
[2022-06-01 04:05] VITALS: BP 118/58
[2022-06-01] MEDS: PANTOPRAZOLE ORAL SUSPENSION 40 MG SUSPDR.PKT GT SCH (06:00)
[2022-06-01] MEDS: BLOOD SUGAR DIAGNOSTIC 1 EACH STRIP VI SCH ×4 (06:00→17:52)
[2022-06-01] MEDS: PIPERACILLIN SODIUM/TAZOBACTAM 3.375 G in IV DEXTROSE 5% 100 ML IV SCH ×3 (06:00→21:02)
[2022-06-01 07:06] LABS: HEMATOCRIT 25.9 % (31.2-41.9); MEAN CORPUSCULAR HEMOGLOBIN 34.3 uug (24.7-32.8); PLATELET COUNT (AUTO) 392 K/uL (179-408)
[2022-06-01 07:31] LABS: CREATININE 0.7 mg/dL (0.6-1.3); MAGNESIUM 1.8 mg/dL (1.8-2.4); PHOSPHOROUS 3.4 mg/dL (2.5-4.9); POTASSIUM 4.7 mmol/L (3.5-5.1)
--- NOTE | 2022-06-01 07:51 | NUR ---
Patient has a good night last night. She well tolerated her meds and feeding. Pain medication have been administered, BP and BS within normal range. G-tube nursing was done. She didn't used her nasal canula last night; however, no respiratory distress have been observed or reported from the patient. She denies pain this morning, no apparent distress. She is still resting in her room. Will continue to monitor patient for safety. Addendum: 06/01/22 at 0759 by [facility] INPATIENT RN15 RN G-Tube dressing was changed.
[2022-06-01] MEDS: PROTEIN SUPPLEMENT (PROSTAT) 30 ML LIQUID GT SCH (08:00)
[2022-06-01] MEDS: ENOXAPARIN SODIUM 30 MG/0.3 ML DISP.SYRIN SUBCUT SCH ×2 (09:00→20:40)
[2022-06-01] MEDS ORDERED: FENTANYL 12 MCG/HR PATCH TD SCH (09:00)
[2022-06-01] MEDS: ALBUTEROL SULFATE 2.5 MG/3 ML NEBU NEB PRN (09:22)
[2022-06-01] MEDS: GABAPENTIN 300 MG CAPSULE GT SCH ×2 (10:10→17:30)
[2022-06-01] MEDS: ACIDOPHILUS/BULGARICUS CHEW TAB GT SCH ×2 (10:10→20:41)
[2022-06-01] MEDS: DOCUSATE SODIUM 100 MG/10 ML LIQUID UDC GT SCH ×2 (10:10→20:41)
[2022-06-01] MEDS: ZINC SULFATE 220 MG CAPSULE GT SCH (10:10)
[2022-06-01] MEDS: FENTANYL 25 MCG/HR PATCH EACH TD SCH (10:10)
[2022-06-01] MEDS: ASCORBIC ACID 500 MG TABLET GT SCH (10:10)
[2022-06-01 12:00] VITALS: BP 93/52
[2022-06-01] MEDS: VANCOMYCIN IV 750 MG in IV DEXTROSE 5% 250 ML IV SCH (14:00)
[2022-06-01 16:05] VITALS: BP 112/58
[2022-06-01 20:00] VITALS: BP 121/59
[2022-06-02] VITALS: BP 118/56
[2022-06-02] MEDS: ACETYLCYSTEINE 10% 4ML VIAL NEB SCH ×2 (00:08→08:45)
[2022-06-02] MEDS: ALBUTEROL SULFATE 2.5 MG/ 0.5 ML NEBU NEB SCH ×2 (00:08→08:44)
[2022-06-02] MEDS: VANCOMYCIN IV 750 MG in IV DEXTROSE 5% 250 ML IV SCH (01:04)
[2022-06-02] MEDS: HYDROCODONE/APAP 5-325MG TABLET GT PRN (02:03)
[2022-06-02 04:00] VITALS: BP 115/61
[2022-06-02] MEDS: PANTOPRAZOLE ORAL SUSPENSION 40 MG SUSPDR.PKT GT SCH (05:08)
[2022-06-02] MEDS: PIPERACILLIN SODIUM/TAZOBACTAM 3.375 G in IV DEXTROSE 5% 100 ML IV SCH (05:08)
[2022-06-02] MEDS: BLOOD SUGAR DIAGNOSTIC 1 EACH STRIP VI SCH ×2 (05:09)
[2022-06-02] MEDS: HYDROCODONE BIT/HOMATROPINE 5 ML UDC PO PRN (06:23)
--- NOTE | 2022-06-02 06:38 | NUR ---
A&OX4. AND ABLE TO MAKE NEEDS KNOWN. MEDICATED FOR PAIN WITH NARCO 5-325MG WITH THERAPEUTIC EFFECTS. COUGHING CONTINUES, PRN COUGH SYRUP ADMIN, WITH THERAPEUTIC EFFECTS. PATIENT REMOVED O2, 92-94% @RA. NO S/S OF SOB NOTED. PICC TO JOSE PATENT, NO S/S OF INFECTION NOTED, FLUSHES WITHOUT RESISTANT. IV VANCO STARTED 06/01 DUE TO HIGH WBC. ZOSYN CONTINUES. PEG PATENT, PLACEMENT VERIFIED, FLUSHES WELL. JEVITY 1.2 CURRENTLY GOING AT @50CC/HR, PATIENT TOLERATING WELL. DRESSING CHANGED TO STOMA SITE. DRESSING REMOVED SATURATED WITH YELLOW DRAINAGE, STRONG ODOR NOTED. REDNESS GRADUALLY CLEARING AROUND STOMA. Q2 HOURS TURNING CONTINUES. PATIENT CURRENTLY RESTING IN WITH EYES CLOSED, CALL HARP WITHIN REACH, BED IN LOW POSITION. NO CONCERNS NOTED. PATT Larsen RN
[2022-06-02 07:57] LABS: HEMATOCRIT 24.6 % (31.2-41.9); MEAN CORPUSCULAR HEMOGLOBIN 32.2 uug (24.7-32.8); MEAN CORPUSCULAR VOLUME 94.8 fL (75.5-95.3); PLATELET COUNT (AUTO) 447 K/uL (179-408)
[2022-06-02] MEDS: PROTEIN SUPPLEMENT (PROSTAT) 30 ML LIQUID GT SCH (08:00)
[2022-06-02 08:09] LABS: CREATININE 0.6 mg/dL (0.6-1.3); MAGNESIUM 1.6 mg/dL (1.8-2.4); PHOSPHOROUS 3.5 mg/dL (2.5-4.9); POTASSIUM 4.2 mmol/L (3.5-5.1)
--- NOTE | 2022-06-02 08:15 | NUR ---
Pt received and assessed. Patient lethargic. Lungs sound crackles. Suction done at bedside. Respiratory therapy notified. [place] made aware.
--- NOTE | 2022-06-02 08:20 | NUR ---
Breathing labored. Patient unresponsive. Rapid response called.
--- NOTE | 2022-06-02 08:23 | NUR ---
No breathing noted. No pulse. Code blue initiated. was notified. stated " I do not want my to have compressions or intubated". Patient has a pulse. Heart rate 160 and up. Patient was transferred to ICU for further treatment. Report given to Geni ICU nurse.
[2022-06-02 08:43] VITALS: BP 136/58
[2022-06-02] MEDS ORDERED: EPINEPHRINE 1:10,000 1 MG/10 ML DISP.SYRIN ONE (08:46)
[2022-06-02] MEDS ORDERED: CALCIUM CHLORIDE 1 GM/10 ML DISP.SYRIN IVP ONE (08:46)
--- NOTE | 2022-06-02 08:53 | NUR ---
Received pt. S/P code blue attached to athletic monitor sinus tachycardia rate in the 130's. SBP in the 136/58. RR 12 received pt on agonal breathing eyes open does not track, BROOKE slugish. At this time also arrive Buddy Lonnie López who verbalized "I don't want my to have compressions or be resuscitated or intubated." Attending notified/.
[2022-06-02] MEDS: GABAPENTIN 300 MG CAPSULE GT SCH (09:00)
[2022-06-02] MEDS: DOCUSATE SODIUM 100 MG/10 ML LIQUID UDC GT SCH (09:00)
[2022-06-02] MEDS: ZINC SULFATE 220 MG CAPSULE GT SCH (09:00)
[2022-06-02] MEDS: ACIDOPHILUS/BULGARICUS CHEW TAB GT SCH (09:00)
[2022-06-02] MEDS: ASCORBIC ACID 500 MG TABLET GT SCH (09:00)
--- NOTE | 2022-06-02 09:00 | NUR ---
Corporate Fitness Program Coordinator Dr. Ross int he unit and at this time He spoke with pt's and family who remains at bedside. And as per "I want my to be on comfort measures and arabella management only" Corporate Fitness Program Coordinator will communicate with attending.
[2022-06-02] MEDS: ENOXAPARIN SODIUM 30 MG/0.3 ML DISP.SYRIN SUBCUT SCH (09:33)
[2022-06-02] MEDS ORDERED: MAGNESIUM SULFATE/D5W 100 ML IV SCH ×2 (10:00→16:00)
--- NOTE | 2022-06-02 10:00 | NUR ---
A message from attending orders for comfort measures received, awaiting for orders.
[2022-06-02] MEDS ORDERED: MORPHINE SULFATE 2 MG/1 ML DISP.SYRIN IV PRN (11:00)
[2022-06-02] MEDS ORDERED: SCOPOLAMINE PATCH 1 MG/72 HRS PATCH TD PRN (11:00)
[2022-06-02] MEDS ORDERED: LORAZEPAM 2 MG/1 ML VIAL IV PRN ×2 (11:00→11:45)
[2022-06-02] MEDS ORDERED: GLYCOPYRROLATE 0.2 MG/ML VIAL IV PRN (11:00)
[2022-06-02 11:02] VITALS: BP 122/43
[2022-06-02] MEDS ORDERED: MORPHINE SULFATE 4 MG/1 ML DISP.SYRIN IV PRN (11:15)
[2022-06-02] MEDS ORDERED: MORPHINE SULFATE PF IV DRIP 100 MG in IV DEXTROSE 5% 96 ML IV PRN (11:45)
[2022-06-02 12:30] VITALS: BP 80/48
--- NOTE | 2022-06-02 12:31 | NUR ---
Patient Apneic for one minute. Pupils fixed and dilated. No audible heart sounds. No breath sounds for one minute. No palpable pulses for one minute. No corneal reflexes. [employer] notified with [id number] Patient pronounced by primary Clay Cisse.
--- NOTE | 2022-06-02 12:45 | NUR ---
[employer] called and telesales representative Rosa received report and released body. "pt. is not a candidate for any donation and body may be release to family" RID [id number]
--- NOTE | 2022-06-02 14:20 | NUR ---
Pt. waste picker and taken down to the [facility] chart taken by rn Strategic Marketing Associate. belongings taken home by .
[2022-06-02] MEDS ORDERED: ENOXAPARIN SODIUM 60 MG/0.6 ML DISP.SYRIN SQ SCH (21:00)
== END 2022-06-02 14:23 | DRG 871 ==
LOC: ER 12:25 → TELE3 14:30 → CCU 06-02 08:48
PROVIDERS: ADMIT Internal Medicine; ATTEND Registered Nurse
PROC: 05H633Z Insertion of Infusion Device into Left Subclavian Vein, Percutaneous Approach (ICD-10-PCS; 2022-05-16)
PROC: B547ZZA Ultrasonography of Left Subclavian Vein, Guidance (ICD-10-PCS; 2022-05-16)
PROC: 02HV33Z Insertion of Infusion Device into Superior Vena Cava, Percutaneous Approach (ICD-10-PCS; 2022-05-20)
PROC: B548ZZA Ultrasonography of Superior Vena Cava, Guidance (ICD-10-PCS; 2022-05-20)
PROC: 0W9B3ZZ Drainage of Left Pleural Cavity, Percutaneous Approach (ICD-10-PCS; principal; 2022-05-28)
PROC: 5A12012 Performance of Cardiac Output, Single, Manual (ICD-10-PCS; 2022-06-02)
DX: A41.9 Sepsis, unspecified organism (principal); E43 Unspecified severe protein-calorie malnutrition; G92.8 Other toxic encephalopathy; J69.0 Pneumonitis due to inhalation of food and vomit; J96.01 Acute respiratory failure with hypoxia; D68.69 Other thrombophilia; Z51.5 Encounter for palliative care; E87.1 Hypo-osmolality and hyponatremia; M48.56XA Collapsed vertebra, not elsewhere classified, lumbar region, initial encounter for fracture; C79.51 Secondary malignant neoplasm of bone; J98.11 Atelectasis; K94.22 Gastrostomy infection; Z66 Do not resuscitate; L03.311 Cellulitis of abdominal wall; J91.0 Malignant pleural effusion; C78.02 Secondary malignant neoplasm of left lung; C78.01 Secondary malignant neoplasm of right lung; K31.6 Fistula of stomach and duodenum; D69.6 Thrombocytopenia, unspecified; D53.9 Nutritional anemia, unspecified; E66.01 Morbid (severe) obesity due to excess calories; E83.42 Hypomagnesemia; E87.6 Hypokalemia; E88.09 Other disorders of plasma-protein metabolism, not elsewhere classified; G89.4 Chronic pain syndrome; I10 Essential (primary) hypertension; Z86.16 Personal history of COVID-19; Z86.718 Personal history of other venous thrombosis and embolism; Z86.73 Personal history of transient ischemic attack (TIA), and cerebral infarction without residual deficits; Z87.442 Personal history of urinary calculi; Z20.822 Contact with and (suspected) exposure to COVID-19; R13.10 Dysphagia, unspecified; E83.39 Other disorders of phosphorus metabolism; G89.3 Neoplasm related pain (acute) (chronic); Z74.01 Bed confinement status; Z79.01 Long term (current) use of anticoagulants; E87.70 Fluid overload, unspecified; Z79.891 Long term (current) use of opiate analgesic; Z74.09 Other reduced mobility; C05.9 Malignant neoplasm of palate, unspecified; Z79.899 Other long term (current) drug therapy; Y83.8 Other surgical procedures as the cause of abnormal reaction of the patient, or of later complication, without mention of misadventure at the time of the procedure; Y73.8 Miscellaneous gastroenterology and urology devices associated with adverse incidents, not elsewhere classified; Y92.009 Unspecified place in unspecified non-institutional (private) residence as the place of occurrence of the external cause; L98.9 Disorder of the skin and subcutaneous tissue, unspecified; R73.9 Hyperglycemia, unspecified; L25.3 Unspecified contact dermatitis due to other chemical products; Z91.041 Radiographic dye allergy status; Z68.22 Body mass index [BMI] 22.0-22.9, adult
CPT/HCPCS: 32555; 36415; 36569; 71045; 71250; 74018; 76604; 82378; 82652; 82747; 82784; 83550; 83605; 83615; 83735; 83970; 83986; 84100; 84155; 84165; 84443; 84478; 84484; 84550; 85014; 85025; 85610; 85730; 86038; 86140; 86334; 86430; 86706; 86803; 87040; 87340; 92950; 93005; 94640; 99082-TC; A4663; A6209; A6213; C9113; G0378; J0171; J0500; J0690; J1650; J1815; J1885; J2060; J2185; J2270; J2274; J2405; J2543; J2765; J2916; J3370; J3475; J3480; J3490; J7040; J7042; J7050; J7060; J7131; P9047; Q9963